=== PATIENT | female | born 1950 | race Caucasian/White ===

== ENCOUNTER 2017-02-07 05:45 | Day surgery (SDC) | payer OTHER, MEDICARE ==
[2017-02-06 12:22] LABS: BILIRUBIN,URINE NEGATIVE (NEGATIVE); CLARITY/URINE SL HAZY (CLEAR); COLOR,URINE YELLOW (YELLOW); GLUCOSE,URINE NEGATIVE (NEGATIVE); KETONES,URINE NEGATIVE (NEGATIVE); LEUKOCYTE ESTERASE ,URINE TRACE (NEGATIVE); NITRITE, URINE NEGATIVE (NEGATIVE); PROTEIN URINE NEGATIVE (NEGATIVE); UROBILINOGEN,URINE 0.2 (0.2-1.0)
[2017-02-06 12:24] LABS: BASOPHILS # (AUTO) 0.1 K/uL (0.0-0.2); BLOOD, URINE TRACE (NEGATIVE); EOSINOPHILS # (AUTO) 0.2 K/uL (0.0-0.4); EOSINOPHILS % (AUTO) 3.3 % (0.0-4.0); HEMATOCRIT 38.7 % (36-48); HEMOGLOBIN 12.4 g/dL (12.0-16.0); LYMPHOCYTES # (AUTO) 2.2 K/uL (1.0-5.5); LYMPHOCYTES % (AUTO) 30.2 % (20.5-51.5); MEAN CORPUSCULAR HEMOGLOBIN 28 pg (27-31); MEAN CORPUSCULAR HGB CONC 32 % (32-36); MEAN CORPUSCULAR VOLUME 89 fL (79.0-98.0); MONOCYTES # (AUTO) 0.5 K/uL (0.0-1.0); MONOCYTES % (AUTO) 7.3 % (1.7-9.3); NEUTROPHILS # (AUTO) 4.2 K/uL (1.8-7.7); NEUTROPHILS % (AUTO) 58.2 % (40.0-70.0); PLATELET COUNT (AUTO) 360 K/uL (130-430); RED BLOOD CELL COUNT(AUTO) 4.36 MIL/uL (4.2-6.2); RED CELL DISTRIBUTION WIDTH 12.4 % (9.0-15.0); WHITE BLOOD COUNT (AUTO) 7.2 K/uL (4.8-10.8)
[2017-02-06 12:37] LABS: CALCIUM 9.4 mg/dL (8.4-11.0); CREATININE 0.93 mg/dL (0.55-1.30); POTASSIUM 4.2 mmol/L (3.5-5.1)
[2017-02-06 12:38] LABS: BACTERIA,URINE FEW /HPF (None Seen); MUCUS,URINE 1+ /LPF (None Seen)
[2017-02-06 12:41] LABS: PROTHROMBIN TIME 9.9 SECS (9.5-12.5)
[2017-02-06 12:43] LABS: ALBUMIN 3.9 g/dL (3.4-4.8); TOTAL BILIRUBIN 0.3 mg/dL (0.0-1.0)
[~2017-02-07] VITALS: Ht 147.3 cm; Wt 60.8 kg
[2017-02-07] MEDS ORDERED: LR 1,000 ML IV.SOLN IV ONE (05:46)
[2017-02-07] MEDS ORDERED: PROPOFOL 200MG/ 20ML VIAL (DIPRIVAN) IV ONE (05:46)
[2017-02-07] MEDS ORDERED: KETOROLAC TROMETHAMINE 30 MG VIAL IVP ONE (05:46)
[2017-02-07] MEDS ORDERED: SEVOFLURANE 15 MIN GAS INH ONE (05:46)
[2017-02-07] MEDS ORDERED: ONDANSETRON HCL 4 MG/2 ML VIAL IVP ONE (05:46)
[2017-02-07] MEDS ORDERED: MIDAZOLAM HCL 5 MG/ML VIAL (VERSED) IV ONE (05:46)
[2017-02-07] MEDS ORDERED: PHENYLEPHRINE HCL 0.25% NASAL 15 ML NASPR NS ONE (05:46)
[2017-02-07] MEDS ORDERED: METHYLERGONOVINE MALEATE 0.2 MG/ML AMP IM ONE (05:46)
[2017-02-07] MEDS ORDERED: NS IRRIG SOLN 5000 ML IR ONE (05:46)
[2017-02-07] MEDS ORDERED: fentaNYL CITRATE/PF 100 MCG/2 ML AMP IVP ONE (05:46)
[2017-02-07] MEDS ORDERED: CEFAZOLIN 2 GM IVPB PREMIX 50 ML IV ONE (07:00)
[2017-02-07] MEDS ORDERED: LR 1,000 ML IV SCH (07:41)
[2017-02-07] MEDS ORDERED: ONDANSETRON HCL 4 MG/2 ML VIAL IVP PRN (07:45)
[2017-02-07] MEDS ORDERED: MEPERIDINE HCL/PF 25 MG/ML DISP.SYRIN IVP PRN ×2 (07:45)
[2017-02-07] MEDS ORDERED: PROMETHAZINE HCL 25 MG/ML AMP IM PRN (08:30)
[2017-02-07] MEDS ORDERED: HYDROcodone/ACETAMIN 5-325 MG TAB (NORCO/ VICODIN) PO PRN ×2 (08:30)
[2017-02-07 09:18] VITALS: BP_SYST 140
[2017-02-07] MEDS ORDERED: ACETAMINOPHEN 500 MG TABLET ONE ×2 (09:54→09:57)
[2017-02-07] MEDS ORDERED: ACETAMINOPHEN 500 MG TABLET PO ONE (10:15)
== END 2017-02-07 10:30 | disposition home or self-care (01) ==
LOC: SMU 05:45 → SDS 05:45
PROVIDERS: ATTEND Obstetrics & Gynecology Gynecology
DX: N84.0 Polyp of corpus uteri (principal); I10 Essential (primary) hypertension; M19.90 Unspecified osteoarthritis, unspecified site; K21.9 Gastro-esophageal reflux disease without esophagitis; K57.30 Diverticulosis of large intestine without perforation or abscess without bleeding; E78.00 Pure hypercholesterolemia, unspecified; N39.46 Mixed incontinence; Z79.899 Other long term (current) drug therapy; Z88.8 Allergy status to other drugs, medicaments and biological substances; E78.5 Hyperlipidemia, unspecified
CPT/HCPCS: 36415; 58558; 71020; 80053; 81000; 85025; 85610; 85730; 86886; 86900; 86901; 88305; 93005; C1819; J0690; J1885; J2210; J2250; J2405; J2704; J3010; J7120